=== PATIENT | male | born 1990 ===

== ENCOUNTER 2018-06-14 09:38 | Day surgery (SDC) | payer MEDICAID ==
[2018-05-28 12:19] VITALS: BMI 26.6
[~2018-06-14 09:38] MED LIST: Ofloxacin 0.3% Ophth Soln ONE
[2018-06-14] MEDS ORDERED: Propofol 10 mg/ml Inj (20 ML) ONE (10:26)
[2018-06-14 11:43] VITALS: RESP 18; TEMP 97.7; O2SAT 100
[2018-06-14 12:45] VITALS: BP 137/76; PULSE 63
--- NOTE | 2018-06-14 18:38 | OP ---
Copied To: Kyle Currie MD Attending MD: Kyle Currie MD PROCEDURE DATE: 06/14/2018 PREOPERATIVE DIAGNOSIS: Right chronic otitis media. POSTOPERATIVE DIAGNOSIS: Right chronic otitis media. PROCEDURE: Right myringotomy tube. SIGNIFICANT FINDINGS: Fluid noted behind right TM. DESCRIPTION OF PROCEDURE: Patient was brought into the room, placed in the supine position. Anesthesia was initiated through face mask. The head was turned. The right ear was brought under view using operative microscope and ear speculum. A radial incision was made in the anterior-inferior quadrant. Fluid was noted behind the TM and suctioned out. Tube was placed. Floxin was placed. The ear speculum and microscope were taken out of position. The patient was taken off anesthesia and taken to recovery room in stable manner. Kyle Currie MD
== END 2018-06-14 13:00 | disposition home or self-care (01) ==
LOC: C.SDS 09:38
PROVIDERS: ATTEND Otolaryngology
DX: H66.11 Chronic tubotympanic suppurative otitis media, right ear (principal)
CPT/HCPCS: 69436; J2704; J3010